=== PATIENT | female | born 1990 | race African-American/Black ===

== ENCOUNTER 2018-11-08 00:06 | Inpatient (IN) | payer OTHER ==
[2018-11-08 00:52] LABS: #Basophils 0.1 thou/uL (0.0-0.2); #Monocytes 0.8 thou/uL (0.11-0.59); #Neutrophils 7.3 thou/uL (1.40-6.50); %Basophils 0.6 % (0.0-1.0); %Eosinophils 0.4 % (0.0-10.0); %Lymphocytes 26.7 % (21.0-51.0); %Monocytes 6.8 % (0.0-10.0); %Neutrophils 65.6 % (42.0-75.0); Hemoglobin 12.5 g/dL (12.0-16.0); Mean Corpuscular HGB CONC 33.5 g/dL (32.0-36.0); Mean Corpuscular Hemoglobin 28.2 pg (27.0-31.0); Mean Corpuscular Volume 84.3 fL (78.0-98.0); Mean Platelet Volume 7.8 fL (7.4-10.4); Platelet Count 386 thou/uL (130-400); RBC Distribution Width 12.1 % (11.5-14.5); Red Blood Cell (RBC) Count 4.45 mill/uL (4.20-5.40); White Blood Cell (WBC) Count 11.2 thou/uL (4.8-10.8)
[2018-11-08 00:58] LABS: BHCG - Serum POSITIVE (NEGATIVE); Pregs Control Background? CLEAR/WHITE (CLR/WHITE); Pregs Control Bar Appear? YES (CONTROL BAR)
[2018-11-08 01:08] LABS: ALT (SGPT) 22 U/L (8-55); AST (SGOT) 20 U/L (5-34); Alkaline Phosphatase 62 U/L (40-150); Anion Gap 18 mmol/L (10-20); BUN (Urea Nitrogen) 16 mg/dL (7.0-18.7); Bilirubin, Total 1.1 mg/dL (0.2-1.2); CK (CPK) 342 U/L (29-168); Calc. Creatinine Clearance 0 mL/min (70-130); Calcium 9.6 mg/dL (7.8-10.44); Carbon Dioxide 18 mmol/L (22-29); Chloride 103 mmol/L (98-107); Estimated GFR-MDRD 85; Globulin 3.9 g/dL (2.4-3.5); Glucose 176 mg/dL (70-105); Lipase 57 U/L (8-78); Potassium 3.1 mmol/L (3.5-5.1); Protein, Total 8.9 g/dL (6.0-8.3); Sodium 136 mmol/L (136-145)
[2018-11-08] MEDS ORDERED: Ondansetron PF 4 MG/2 ML Vial ONE (01:09)
[2018-11-08] MEDS ORDERED: Potassium Chloride 20 MEQ TAB ONE (01:32)
[2018-11-08] MEDS ORDERED: Promethazine HCl 25 MG/ML VIAL ONE (02:12)
[2018-11-08] MEDS ORDERED: D5 1/2 NS w/20 mEq KCL 1,000 ML IV SCH (02:15)
[2018-11-08] MEDS ORDERED: Ondansetron ODT 4 MG TAB PO PRN (03:21)
[2018-11-08] MEDS ORDERED: Acetaminophen 325 MG TAB PO PRN (03:21)
--- NOTE | 2018-11-08 03:28 | PDOC.FPRHP ---
- History of Present Illness Chief Complaint: Vomiting History of Present Illness: 28 year old female with PMH type I DM that presents with uncontrolled nausea and vomiting for the past four days. Patient has been unable to keep anything down to include fluids. Patient also endorses some abdominal cramping since that time. Patient reportedly had her LMP last . Per patient's significant other, they had a positive test on Saturday, but no ultrasound had been done to confirm the . They also had a stillbirth in August. Patient has known history of DKA and states that her current state feels similar to when she has been in DKA in the past. Patient somewhat somnolent during exam and did not answer questions in detail. ED Course: Patient given 2L NS, 8 mg IV Zofran, 25 mg IV Phenergan, and was started on D51/ 2NS with 20 KCl in ED. Patient was also given KDur PO, but vomited, so was unable to keep it down. - Allergies/Adverse Reactions Allergies Allergy/AdvReac Type Severity Reaction Status Date / Time No Known Drug Allergies Allergy Verified 05/11/17 23:47 - Home Medications Medication Instructions Recorded Confirmed Type Insulin NPH/Reg Insulin Hm 12 units SQ BID 05/12/17 05/12/17 History [HumuLIN 70/30 Vial] - History PMHx: Type I DM with history of DKA PSHx: None FHx: DM and HTN Social: Denies alcohol, tobacco, or drug use - Review of Systems ROS unobtainable: other (solmnolent and not forthcoming with responses) General: denies: fever/chills Respiratory: denies: cough, shortness of breath Cardiovascular: denies: chest pain Gastrointestinal: reports: nausea, vomiting, abdominal pain. denies: diarrhea Genitourinary: denies: dysuria Skin: denies: rashes Neurological: denies: syncope, seizure - Vital signs BP: 116/72 HR: 124 RR: 17 Tmax: 98.4 F Pox: 98% on RA - Physical Exam -Constitutional: Somnolent HEENT: MMM -HEENT: Dry mucous membranes FMR H&P: Results - Labs Result Diagrams: 11/08/18 00:34 11/08/18 06:13 Lab results: WBC 11.2 thou/uL (4.8-10.8) H 11/08/18 00:34 Hgb 12.5 g/dL (12.0-16.0) 11/08/18 00:34 Hct 37.5 % (36.0-47.0) 11/08/18 00:34 MCV 84.3 fL (78.0-98.0) 11/08/18 00:34 Plt Count 386 thou/uL (130-400) 11/08/18 00:34 Neutrophils % 65.6 % (42.0-75.0) 11/08/18 00:34 Sodium 136 mmol/L (136-145) 11/08/18 00:34 Potassium 3.1 mmol/L (3.5-5.1) L 11/08/18 00:34 Chloride 103 mmol/L (98-107) 11/08/18 00:34 Carbon Dioxide 18 mmol/L (22-29) L 11/08/18 00:34 BUN 16 mg/dL (7.0-18.7) 11/08/18 00:34 Creatinine 0.95 mg/dL (0.6-1.1) 11/08/18 00:34 Glucose 176 mg/dL (70-105) H 11/08/18 00:34 Calcium 9.6 mg/dL (7.8-10.44) 11/08/18 00:34 Total Bilirubin 1.1 mg/dL (0.2-1.2) 11/08/18 00:34 AST 20 U/L (5-34) 11/08/18 00:34 ALT 22 U/L (8-55) 11/08/18 00:34 Alkaline Phosphatase 62 U/L (40-150) 11/08/18 00:34 Creatine Kinase 342 U/L (29-168) H 11/08/18 00:34 Serum Total Protein 8.9 g/dL (6.0-8.3) H 11/08/18 00:34 Albumin 5.0 g/dL (3.5-5.0) 11/08/18 00:34 Lipase 57 U/L (8-78) 11/08/18 00:34 FMR H&P: A/P - Problem List (1) Dehydration Current Visit: No Status: Acute Code(s): E86.0 - DEHYDRATION (2) Hyperglycemia Current Visit: No Status: Acute Code(s): R73.9 - HYPERGLYCEMIA, UNSPECIFIED (3) Hypokalemia Current Visit: No Status: Acute Code(s): E87.6 - HYPOKALEMIA (4) Sinus tachycardia Current Visit: No Status: Acute Code(s): R00.0 - TACHYCARDIA, UNSPECIFIED (5) Diabetes mellitus type I Current Visit: Yes Status: Chronic - Plan 28 year old female presents with 4 day history of N/V 1. N/V - Concern for DKA based on anion gap (15), Beta hydroxybutyrate (3), serum bicarb 18, solmnolent patient with history of DKA - ABG ordered but delayed >3 hours for unknown reason (RT was called at time order was placed) - Patient fluid hydrated; received 2L in ED and started on NS@200 mL/hr - Replace electrolytes - Patient tachycardic. Continue to monitor VS - UA pending for ketones 2. Diabetes mellitus type I - Concern for DKA for reasons mentioned above - BG threshold may be lower for DKA as patient is possibly (elevated beta HCG) - Patient on long acting and short acting insulin - She has been having N/V x4 days and has been unable to tolerate PO - Will consult Hospitalist team to assist with medical management 3. Severe dehydration - Patient s/p 2L NS boluses in ED - On NS @ 200 mL/hr - Tachycardic, continue to monitor VS 4. Possible appx 2-3 weeks - Patient initially admitted to our service for hyperemesis gravidarum; however , beta HCG only 230's which would make the patient 2-3 weeks. This timeframe along with the low quant level is not consistent with hyperemesis gravidarum. Additionally, patient's LMP last week which would suggest this may be possible miscarriage. Advise to continue following beta HCG 5. Sinus tachycardia - Likely 2/2 dehydration - Fluid hydration and continue to monitor 6. Hypokalemia - Replace electrolytes - Check Mg Dispo: Patient stable but solmnolent. Patient admitted to [facility]. Patient needs medical management. Hospitalist team was consulted for medical management. Disposition/LOS: Yamileth Slater DO PGY-2 FMR H&P: Upper Level - Plan Date/Time: 11/08/18 0325 I, [], have evaluated this patient and agree with findings/plan as outlined by nutrition intern resident. Pertinent changes/additions are listed here.
[2018-11-08] MEDS ORDERED: Sodium Chloride 0.9% 1,000 ML IV SCH ×2 (04:00)
[2018-11-08] MEDS ORDERED: Potassium Chloride 20 MEQ TAB PO SCH (04:00)
[2018-11-08] MEDS ORDERED: NS 0.9% w/ 40 MEQ KCL 1,000 ML IV SCH (04:00)
--- NOTE | 2018-11-08 05:37 | PRG ---
DATE OF SERVICE: 11/08/2018 SUBJECTIVE: The patient is a 28-year-old female, who was seen in the emergency room for persistent nausea and vomiting for last 4 days with a newly-diagnosed . The patient's past medical history is complicated by type 1 diabetes. The patient also reports her last menstrual period was only 8 days ago. We were consulted by the [facility] ER physician for management of what was concerned to be hyperemesis gravidarum and brought to the floor. Upon personal review of the labs and the patient, I have concerns that the patient is in DKA, and I have consulted the [facility] physician for assistance in management of this patient. The patient has hypokalemia, has an anion gap of 15, altered sensorium, creatine kinase of 342, and beta hydroxybutyrate of 2.97. ABG is pending. Most recent blood sugar is 176. The patient does have a history of DKA in the past. She reports that she has had persistent nausea and vomiting the last 4 days. During the evaluation, she has had a positive test, but the quantitative hCG came back at 284. I do not believe that her symptoms are related to this with the quant so low as hyperemesis gravidarum is usually associated with elevated hCG levels. There is also some thought that the patient may be miscarried recently with a reported period 8 days ago. At this time, the patient has received about 2.5 L of IV fluids and attempting to replace her potassium. No IV insulin has been given at this time given the level of her blood sugar and the low level of her potassium. We have attempted to contact the [facility] physician a second time to request him to come in person to see the patient and anticipate his cooperation in the very near future. OBJECTIVE: Vital signs; temperature 98.4, pulse of 124, blood pressure 116/72, respiratory rate of 17, saturating 98% on room air. In general, the patient appears to have some altered sensorium as the patient seems to be overly sedated with the boyfriend/ answering most of the questions. ASSESSMENT AND PLAN: Our goal is to replace volume depletion and her potassium and manage her blood sugars as necessary keeping her blood sugars between 100 and 150. Job ID: [id number] MTDD
[2018-11-08 05:53] LABS: Bilirubin Small (Negative); Blood, Urine Negative (Negative); Clarity CLEAR (Clear); Glucose, Urine (Dipstick) Negative (Negative); Leukocyte Negative (Negative); Nitrite Negative (Negative); Protein, Urine (Dipstick) 100 mg/dL (Neg-Trace); Specific Gravity, Urine 1.025 (1.002-1.036); pH, Urine 6.5 (5.0-9.0)
[2018-11-08 06:08] LABS: Actual Bicarbonate (HCO3a) 18.1 mEq/L (22-28); Base Excess (BEa) -6.3 mEq/L (-2.0 to +3.0); CO2 Tension 32.3 mmHg (35.0-45.0); Calcium, Ionized 1.13 mmol/L (1.12-1.30); Carboxyhemoglobin (COHb) 0.8 gm% (0.0-3.0); Hemoglobin (Hb) 11.3 g/dL (12.0-16.0); O2 Tension (PaO2) 88.1 mmHg (80.0-100.0); Potassium - ABG Lab 3.41 mmol/L (3.70-5.30); pH, Arterial 7.37 (7.35-7.45)
[2018-11-08 06:10] LABS: Puncture Site R RADIAL
[2018-11-08 06:11] LABS: ALV-art Gradient 21.255 (0-20)
[2018-11-08 06:50] LABS: Anion Gap 17 mmol/L (10-20); BUN (Urea Nitrogen) 13 mg/dL (7.0-18.7); Calc. Creatinine Clearance 0 mL/min (70-130); Calcium 8.8 mg/dL (7.8-10.44); Carbon Dioxide 16 mmol/L (22-29); Chloride 111 mmol/L (98-107); Estimated GFR-MDRD Greater than 90; Glucose 129 mg/dL (70-105); Potassium 3.5 mmol/L (3.5-5.1); Sodium 140 mmol/L (136-145)
[2018-11-08 06:57] LABS: Phosphorus 1.9 mg/dL (2.3-4.7)
[2018-11-08] MEDS ORDERED: Dextrose 5% in Water 1,000 ML IV PRN ×2 (07:14→07:55)
[2018-11-08] MEDS ORDERED: HumaLOG 300 UNITS/3 ML VIAL SC PRN ×2 (07:14)
[2018-11-08] MEDS ORDERED: Dextrose 50% Abboject 50 ML SYRINGE SLOW IVP PRN ×2 (07:14→07:55)
[2018-11-08] MEDS ORDERED: Potassium Phosphate 30 MMOL in Sodium Chloride 0.9% 500 ML IVPB SCH (07:30)
[2018-11-08] MEDS ORDERED: Lactated Ringer's 1,000 ML IV SCH (07:30)
[2018-11-08] MEDS ORDERED: Insulin Regular 300 UNITS/3 ML VIAL SC PRN (07:55)
--- NOTE | 2018-11-08 08:01 | PDOC.EVN ---
Event Note - Event Note Event Note: Addendum: Upon further investigation into patient's chart and records. Patient states that she is 6-8 weeks but we are unsure if patient is currently or had a miscarriage as patient had her period 8 days ago. At this time patient bloodwork shows positive HCG and HCG of 284. Will recommend Transvaginal Ultrasound to confirm if there is sac.
--- NOTE | 2018-11-08 08:15 | CON ---
DATE OF CONSULTATION: CHIEF COMPLAINT: We have been consulted for medical management. HISTORY OF PRESENT ILLNESS: This is a 28-year-old female with past medical history of type 1 diabetes mellitus, presenting with nausea and vomiting for the past week. Per the patient, she has been having nausea and vomiting for about 4-5 days, and the patient states that she has been throwing up about 5 to 7 times nonbilious, nonbloody prior to day of admission. The patient states that she has not been around any sick contacts and she does not have any symptoms of the flu. The patient denies having any fever, chills, dizziness, headaches, chest pain, palpitations, dysuria, hematuria, hematochezia, melena; however, the patient endorses having abdominal discomfort with some cramping and increased frequency with urination. The patient states that she is and states that she is about 6 to 8 weeks per what she was told. Per records, the patient had stillbirth in August, and the patient also states that she has history of being in DKA. Per the patient, she states that when she has DKA, she gets diaphoretic, vomiting, nausea, and fatigue. At this point , the patient denies having any of these symptoms, except for the fact the patient is vomiting. ED COURSE: In the ED, the patient was given normal saline, Zofran, Phenergan, D5 half-normal saline with 20 KCl. The patient was given K-Dur p.o., but the patient vomited. REVIEW OF SYSTEMS: Positive for nausea, vomiting, abdominal cramps. Otherwise as documented in the HPI, all other systems were reviewed and are negative. PAST MEDICAL HISTORY: Diabetes mellitus type 1. PAST SURGICAL HISTORY: in the past. PSYCHIATRIC HISTORY: No previous psych history noted. SOCIAL HISTORY: The patient denies any smoking history, any illicit drug use, and any alcohol use. FAMILY HISTORY: The patient endorses a family history of hypertension. ALLERGIES: NO KNOWN DRUG ALLERGIES NOTED. CURRENT MEDICATIONS: The patient is on NovoLog and Lantus. PHYSICAL EXAMINATION: VITAL SIGNS: Blood pressure is 104/70, pulse of 127, respiratory rate of 16, temperature of 98.4, O2 saturations of 98. GENERAL: The patient is lying on her right side. The patient has saliva in her mouth. The patient stated that she has not vomited since she has been on the medical floor. The patient is alert and oriented x3. HEENT: Normocephalic and atraumatic. Pupils are equally round and reactive to light. Extraocular movements are intact. No scleral icterus. No conjunctival pallor. Mouth, mucous membranes are dry. NECK: Trachea is midline. Full range of motion. No JVD. Supple. No tenderness. LUNGS: Clear to auscultation bilaterally. No wheezing, no rales, no rhonchi appreciated. CARDIAC: Positive S1 and S2. The patient is tachycardic. ABDOMEN: The patient has protuberant abdomen. Positive bowel sounds in all quadrants. EXTREMITIES: The patient does have 5/5 upper extremity strength and 5/5 lower extremity strength. No edema noted in the extremities. The patient has good pulses bilaterally of the upper and lower extremities. NEUROLOGIC: Cranial nerves 2 through 12 grossly intact. No neurologic deficits noted. SKIN: Poor skin turgor. Warm, dry and intact. PSYCHIATRIC: Normal affect. DIAGNOSTIC DATA: EKG shows sinus tachycardia. LABORATORY DATA: WBC 11.2, hemoglobin 12.5, hematocrit 37.5, MCV 84.3, RDW 12.1 , platelet count 386. ABGs; pH is 7.37, pCO2 is 32.3, pO2 is 88.1. Sodium 136, potassium 3.1, chloride 103, carbon dioxide of 18, anion gap of 18, BUN is 16, creatinine is 0.95, glucose is 176, calcium is 9.6, phosphorus is 1.9, magnesium is 2.3. AST is 20, ALT 22. Creatine kinase is 342. Troponins x1 is less than 0.010. Lipase is 57. Beta-hCG is 284. test is positive. Urinalysis shows some ketones in the urine. Beta-hydroxybutyrate is 2.97. ASSESSMENT AND PLAN: This is a 28-year-old female with past medical history of type 1 diabetes, presenting with nausea and vomiting for the past week, most likely due to hyperemesis gravidarum. At this point, the patient does have ketones in the blood; however, with severe vomiting due to hyperemesis gravidarum, the patient is going to have ketones that are elevated in the serum as well, and the patient is going to have dehydration. At this point, we will hydrate the patient, and we will keep our eyes on the patient closely since there is starvation ketosis that has developed due to vomiting. We will continue medical management. We will replete electrolyte abnormalities. 2. Diabetes mellitus type 1, currently sugar is controlled but there is underlying ketosis from starvation and vomiting. We will start the patient on insulin sliding scale. We will continue on IV hydration of lactated ringers and possibly start D5 1/2 NS. 3. Hyperchloremic acidosis. At this point, we are going to switch the patient's fluids from normal saline to lactated Ringer since the patient is having hyperchloremia. Due to hyperchloremia, the patient can also develop acidosis leading to Emesis and starvation state. 4. . Per the patient, 6 to 8 weeks. At this point, we cannot confirm how long the patient has been for, but per the patient, she has been between 6 and 8 weeks. Per records patient states that she also had some bleed 8 days ago. Unknown if patient is still . Will be beneficial to get Ultrasound of Abdomen to determine if patient is . We will follow up with [facility]'s recommendations. 5. Sinus tachycardia, likely due to dehydration. We will continue current management. 6. Deep vein thrombosis/gastrointestinal prophylaxis. Job ID: [id number] [facility]
[2018-11-08 08:31] VITALS: BMI 23.1
[2018-11-08] MEDS: D5 1/2 NS w/20 mEq KCL 1,000 ML IV SCH ×2 (08:47→15:35)
[2018-11-08] MEDS: Insulin Glargine 10 UNITS in Pre-Filled Syringe 1 EACH SC SCH ×2 (09:05→21:33)
[2018-11-08] MEDS: Insulin Regular 300 UNITS/3 ML VIAL SC PRN ×2 (12:25→15:41)
[2018-11-08 12:56] LABS: Lactic Acid 0.7 mmol/L (0.5-2.2)
[2018-11-08 12:57] LABS: Anion Gap 14 mmol/L (10-20); BUN (Urea Nitrogen) 9 mg/dL (7.0-18.7); Calc. Creatinine Clearance 124 mL/min (70-130); Calcium 8.1 mg/dL (7.8-10.44); Carbon Dioxide 14 mmol/L (22-29); Chloride 113 mmol/L (98-107); Estimated GFR-MDRD Greater than 90; Glucose 194 mg/dL (70-105); Potassium 4.1 mmol/L (3.5-5.1); Sodium 137 mmol/L (136-145)
[2018-11-08] MEDS: Lactated Ringer's 1,000 ML IV SCH ×2 (15:07→21:34)
[2018-11-08] MEDS ORDERED: Mag-Al 1200 mg/1200 mg/30 ML UDCUP PO SCH (15:15)
[2018-11-08] MEDS: Ondansetron PF 4 MG/2 ML Vial IVP PRN ×2 (17:07→21:33)
[2018-11-08] MEDS: Calcium Carbonate 500 MG ChewTAB PO PRN (21:33)
[2018-11-08] MEDS ORDERED: Melatonin 3 MG TAB PO SCH (22:45)
[2018-11-09] MEDS: Metoclopramide HCl 10 MG/2 ML VIAL IVP PRN ×2 (00:51→08:58)
[2018-11-09] MEDS: D5 1/2 NS w/20 mEq KCL 1,000 ML IV SCH ×5 (00:51→22:09)
[2018-11-09] MEDS: Lactated Ringer's 1,000 ML IV SCH (00:52)
[2018-11-09] MEDS: Ondansetron PF 4 MG/2 ML Vial IVP PRN ×2 (05:39→12:45)
[2018-11-09] MEDS: Insulin Regular 300 UNITS/3 ML VIAL SC PRN ×4 (06:06→17:55)
--- NOTE | 2018-11-09 06:35 | PDOC.EVN ---
Event Note - Event Note Event Note: Pt. sleeping, chart is reviewed. Emesis x 2 last shift, tx. with Zofrrufino Reglan with good response. VSS, AF BP= 147/84, P= 107, t= 99.3, O2 sat 100% on RA. Labs; K+= 4.1, glucoses= 171/180/162/188. BHCG 11/08= 284. Plan: Cont. sliding scale insulin for glucose control, antiemetics for nausea. Medical Hospitalist management appreciated. Would repeat BHCG 48-72 hrs from initial test.
[2018-11-09 07:44] LABS: Anion Gap 6 mmol/L (10-20); BUN (Urea Nitrogen) Less than 4 mg/dL (7.0-18.7); Calc. Creatinine Clearance 136 mL/min (70-130); Calcium 8.2 mg/dL (7.8-10.44); Carbon Dioxide 22 mmol/L (22-29); Chloride 110 mmol/L (98-107); Estimated GFR-MDRD Greater than 90; Glucose 186 mg/dL (70-105); Phosphorus 1.4 mg/dL (2.3-4.7); Potassium 3.4 mmol/L (3.5-5.1); Sodium 135 mmol/L (136-145)
[2018-11-09] MEDS ORDERED: Potassium Phosphate 15 MMOL in Sodium Chloride 0.9% 250 ML 250 ML IVPB SCH (08:00)
[2018-11-09] MEDS: Calcium Carbonate 500 MG ChewTAB PO PRN (08:56)
[2018-11-09] MEDS: Insulin Glargine 10 UNITS in Pre-Filled Syringe 1 EACH SC SCH ×2 (09:02→21:38)
[2018-11-09] MEDS: K-Phos Neutral 250 MG TAB PO SCH ×2 (09:51→19:40)
[2018-11-09] MEDS ORDERED: Promethazine HCl 25 MG/ML VIAL IM/IV PRN (10:33)
[2018-11-09] MEDS ORDERED: Metoclopramide HCl 10 MG/2 ML VIAL IVP SCH ×2 (10:45→12:00)
--- NOTE | 2018-11-09 13:42 | PDOC.EVN ---
Event Note - Event Note Event Note: I was called to the room to discuss options with the patient. She feels that she is too ill to go through with the and would like a termination. I discussed that we cannot perform terminations here at [facility]. I recommend repeating the hCG level in the morning to see if it is going up appropriately and to know how she should proceed. In the mean time, we will continue treating N/V and hydrating and [facility] will continue to manage her diabetes.
[2018-11-09] MEDS: Mag-Al 1200 mg/1200 mg/30 ML UDCUP PO PRN (13:46)
[2018-11-09] MEDS: Metoclopramide HCl 10 MG/2 ML VIAL IVP SCH ×2 (15:08→21:38)
[2018-11-10] MEDS: Metoclopramide HCl 10 MG/2 ML VIAL IVP SCH ×3 (03:16→14:53)
[2018-11-10] MEDS: Mag-Al 1200 mg/1200 mg/30 ML UDCUP PO PRN (03:27)
[2018-11-10] MEDS: Insulin Regular 300 UNITS/3 ML VIAL SC PRN ×2 (06:20→13:14)
[2018-11-10] MEDS: D5 1/2 NS w/20 mEq KCL 1,000 ML IV SCH (06:21)
[2018-11-10 07:22] LABS: Anion Gap 10 mmol/L (10-20); BUN (Urea Nitrogen) Less than 4 mg/dL (7.0-18.7); Calc. Creatinine Clearance 132 mL/min (70-130); Calcium 8.6 mg/dL (7.8-10.44); Carbon Dioxide 22 mmol/L (22-29); Chloride 108 mmol/L (98-107); Estimated GFR-MDRD Greater than 90; Glucose 164 mg/dL (70-105); Phosphorus 2.2 mg/dL (2.3-4.7); Potassium 3.5 mmol/L (3.5-5.1); Sodium 136 mmol/L (136-145)
[2018-11-10] MEDS ORDERED: Potassium Phosphate 12 MMOL in Sodium Chloride 0.9% 100 ML IVPB SCH (08:00)
--- NOTE | 2018-11-10 08:18 | PRG ---
DATE OF SERVICE: 11/10/2018 SUBJECTIVE: The patient had no vomiting overnight and feels that the current medication regimen is helping. She kept her eyes closed and only nodded this morning. She appears to be without complaints this morning. The patient denies any bleeding or other concerns. The patient has not tried eating anything overnight. OBJECTIVE: VITAL SIGNS: Blood pressure 110/68, pulse 119, respiratory rate 18 , and temperature 98.2. GENERAL: Awake and alert, in no acute distress. ABDOMEN: Soft. No guarding or rebound. Nontender to palpation. LABORATORY DATA: Glucose was 95 to 176 over the last 24 hours. HCG pending. CMP and phosphorus pending. ASSESSMENT AND PLAN: A 28-year-old admitted for persistent nausea and vomiting with newly diagnosed as well as uncontrolled blood sugars with question of diabetic ketoacidosis. She is being followed by [facility] for her diabetes and electrolyte abnormalities. We appreciate their input regarding this. Regarding the , if the hCG level rises appropriately, the patient's likely resource is to terminate the . She understands that cannot be done here. If the patient stays, she will likely need to be transferred to medical floor later today. Job ID: [id number] MTDD
[2018-11-10] MEDS: Insulin Glargine 10 UNITS in Pre-Filled Syringe 1 EACH SC SCH (08:46)
[2018-11-10 10:58] LABS: Base Excess-Venous -5.7 mmol/L (0 (+/- 2.5)); Bicarbonate (HCO3v) 17.7 mmol/L (22.0-29.0); CO2 Tension (PvCO2) 28.2 mmHg (41.0-51.0); Calcium, Ionized 1.12 mmol/L (1.12-1.32); Hemoglobin - Calc 12.9 g/dL (12.0-18.0); O2 Tension (PvO2) 36.8 mmHg (35.0-45.0); Potassium 2.9 mmol/L (3.4-4.7); T. Carbon Dioxide 18.5 mmol/L (1.0-85.0); pH (Venous) 7.405 (7.35-7.45); vO2 Saturation-calc 71.9 % (94-98)
[2018-11-10] MEDS ORDERED: 1/2 NS w/KCL 20 mEq 1,000 ML IV SCH (11:45)
[2018-11-10 12:07] VITALS: TEMP 98.5
[2018-11-10 12:37] VITALS: BP 99/68
--- NOTE | 2018-11-10 14:20 | DIS ---
DATE OF ADMISSION: 11/08/2018 DATE OF DISCHARGE: 11/10/2018 IN-HOSPITAL DIAGNOSES: 1. Early first-trimester . 2. Type 1 diabetic ketoacidosis with reflux. 3. Hypokalemia. 4. Hypophosphatemia. SUMMARY OF HOSPITAL COURSE: Ms. Powell is a 28-year-old, G2, P1, in early with normally rising beta-hCGs. She presented with symptoms consistent with her previous admissions and diagnosis of mild DKA, but was admitted by the OB Hospitalist Service with consultation of [facility] because of her . Her nausea and vomiting improved during her hospitalization, as well as her glycemic control in her laboratory. Vitals are stable with pulse between 100 and 110. The patient had an unremarkable exam on the p.m. of discharge and desired discharge home stating that she was able to tolerate p.o. well and felt as long as she continues eating, she would do well. She is going to follow up with Dr. Leigh at [facility], who is her regular diabetes management physician and initiate obstetric care at [facility]. No new discharge medicines were administered. Job ID: [id number]
--- NOTE | 2018-11-10 19:13 | PDOC.PN ---
- Subjective Encounter Start Date: 11/10/18 Encounter Start Time: 08:00 Patient seen and examined for med mngt. Nausea improving. No new complaints. No overnight events - Objective Resuscitation Status - Order Detail: 11/08/18 03:21 Resuscitation Status Routine Co-Sign Provider: Resuscitation Status: FULL: Full Resuscitation Discussed with: Patient and patient's spouse MAR Reviewed: Yes Vital Signs & Weight: Vital Signs (12 hours) Temp Pulse Resp BP BP Pulse Ox 11/10/18 12:00 98.5 F 111 H 18 114/76 99 11/10/18 10:00 98 11/10/18 09:05 98.4 F 113 H 16 99/68 98 11/10/18 08:20 97 11/10/18 07:55 98.6 F 117 H 20 98/63 97 Weight Weight 148 lb I&O: 11/09/18 11/10/18 11/11/18 06:59 06:59 06:59 Intake Total 4410 3362 Output Total 950 1550 Balance 3460 1812 Result Diagrams: 11/08/18 00:34 11/10/18 06:19 Additional Labs: Accuchecks 11/10/18 11/10/18 11/10/18 11:47 05:57 02:36 POC Glucose 173 H 165 H 151 H 11/09/18 21:56 POC Glucose 95 Laboratory Tests 11/08/18 11/10/18 01:25 06:19 POC Venous Potassium 2.9 L* Phosphorus 2.2 L Phys Exam - Physical Examination Constitutional: NAD Respiratory: no wheezing, no rhonchi Cardiovascular: RRR, no rub Gastrointestinal: soft, non-tender, positive bowel sounds Musculoskeletal: no edema Neurological: moves all 4 limbs Dx/Plan (1) DKA, type 1 Code(s): E10.10 - TYPE 1 DIABETES MELLITUS WITH KETOACIDOSIS WITHOUT COMA Status: Acute Qualifiers: Diabetes mellitus complication detail: without coma Qualified Code(s): E10.10 - Type 1 diabetes mellitus with ketoacidosis without coma (2) Hypophosphatemia Code(s): E83.39 - OTHER DISORDERS OF PHOSPHORUS METABOLISM Status: Acute (3) Hypokalemia Code(s): E87.6 - HYPOKALEMIA Status: Acute (4) Diabetes mellitus type I Status: Chronic - Plan DVT proph w/SCDs * Replace Phosphorus * Change IVF to 1/2 NS with 20 meq KCL * AM labs * Advance diet as tolerated * Patient was counselled on DM type 1. * Will follow Review of Systems - Review of Systems Respiratory: negative: Cough, Dry, Shortness of Breath, Hemoptysis, SOB with Excertion, Pleuritic Pain, Sputum, Wheezing Cardiovascular: negative: chest pain, palpitations, orthopnea, paroxysmal nocturnal dyspnea, edema, light headedness, other - Medications/Allergies Allergies/Adverse Reactions: Allergies Allergy/AdvReac Type Severity Reaction Status Date / Time No Known Drug Allergies Allergy Verified 05/11/17 23:47
--- NOTE | 2018-11-11 14:15 | EKG ---
Test Reason : DK TACHY Blood Pressure : / mmHG Vent. Rate : 141 BPM Atrial Rate : 141 BPM P-R Int : 112 ms QRS Dur : 076 ms QT Int : 290 ms P-R-T Axes : 079 068 -29 degrees QTc Int : 444 ms Sinus tachycardia Nonspecific ST and T wave abnormality Abnormal ECG Confirmed by ALANNA LARA, TIN ([id number]), editor index LAYTON ORTIZ ([id number]) on 11/11/2018 2:15:39 PM Referred By: Confirmed By:TIN MONDRAGON MD
== END 2018-11-10 15:29 | disposition home or self-care (01) | DRG 831 ==
LOC: ERS 00:06 → SDC/OP 02:42 → 3SW 02:52 → T4-B 11-10 09:05
PROVIDERS: ADMIT Obstetrics & Gynecology; ATTEND Obstetrics & Gynecology
DX: O24.011 Pre-existing type 1 diabetes mellitus, in pregnancy, first trimester (principal); E10.10 Type 1 diabetes mellitus with ketoacidosis without coma; E87.6 Hypokalemia; E83.39 Other disorders of phosphorus metabolism; Z79.4 Long term (current) use of insulin; E86.0 Dehydration; E87.8 Other disorders of electrolyte and fluid balance, not elsewhere classified; O99.281 Endocrine, nutritional and metabolic diseases complicating pregnancy, first trimester
CPT/HCPCS: 36415; 36416; 80048; 80053; 81003; 82010; 82330; 82550; 82803; 82805; 83605; 83690; 83735; 84100; 84484; 84702; 84703; 85014; 85025; 93005; 94760; 96361; 96365; 96375; J1815; J2405; J2550; J2765; J3480; J7050; Q0162

== ENCOUNTER 2018-11-15 13:49 | Emergency (ER) | payer OTHER ==
[2018-11-15 14:29] LABS: Bilirubin Small (Negative); Blood, Urine Large (Negative); Clarity CLOUDY (Clear); Glucose, Urine (Dipstick) Negative (Negative); Leukocyte Moderate (Negative); Nitrite Negative (Negative); Protein, Urine (Dipstick) 100 mg/dL (Neg-Trace); Specific Gravity, Urine 1.034 (1.002-1.036)
[2018-11-15 14:35] LABS: Bacteria/HPF 1+ HPF (None Seen); Pathc Cast-AUWi Flag 1.59 (0-2.49)
[2018-11-15 14:42] LABS: Crystals/HPF 1+ CA OXALATE HPF (Negative); Hyaline Casts/LPF 0-3 HYALINE CAST LPF (0-3 Hyaline); Renal Epithelial None Seen HPF (0-3); Transitional Epithelial NONE SEEN HPF (0-3)
[2018-11-15 14:47] LABS: #Lymphocytes 2.1 thou/uL (1.20-3.40); #Monocytes 0.5 thou/uL (0.11-0.59); #Neutrophils 4.4 thou/uL (1.40-6.50); %Basophils 0.3 % (0.0-1.0); %Eosinophils 0.4 % (0.0-10.0); %Monocytes 6.7 % (0.0-10.0); %Neutrophils 62.6 % (42.0-75.0); Hemoglobin 12.1 g/dL (12.0-16.0); Mean Corpuscular HGB CONC 34.3 g/dL (32.0-36.0); Mean Corpuscular Hemoglobin 29.4 pg (27.0-31.0); Mean Corpuscular Volume 85.6 fL (78.0-98.0); Mean Platelet Volume 7.9 fL (7.4-10.4); Platelet Count 301 thou/uL (130-400); RBC Distribution Width 12.6 % (11.5-14.5); Red Blood Cell (RBC) Count 4.13 mill/uL (4.20-5.40); White Blood Cell (WBC) Count 7.1 thou/uL (4.8-10.8)
[2018-11-15 14:48] LABS: BHCG - Serum POSITIVE (NEGATIVE); Pregs Control Background? CLEAR/WHITE (CLR/WHITE); Pregs Control Bar Appear? YES (CONTROL BAR)
== END 2018-11-15 15:30 | disposition left against medical advice (07) ==
LOC: ERS 13:49
DX: Z53.21 Procedure and treatment not carried out due to patient leaving prior to being seen by health care provider (principal)
CPT/HCPCS: 36415; 81003; 81015; 84702; 84703; 85025; 86900; 86901

== ENCOUNTER 2019-04-22 23:04 | Emergency (ER) | payer OTHER ==
[2019-04-22 23:34] LABS: Bilirubin Negative (Negative); Blood, Urine Negative (Negative); Clarity CLEAR (Clear); Glucose, Urine (Dipstick) >=1000 mg/dL (Negative); Leukocyte Negative (Negative); Nitrite Negative (Negative); Protein, Urine (Dipstick) Negative (Neg-Trace); Specific Gravity, Urine 1.041 (1.002-1.036); Urobilinogen 0.2 mg/dL (0.2-1.0)
[2019-04-22 23:35] LABS: Pregnancy Test - Urine (BHCG) Negative (Negative); Pregu Control Bar Appear? YES (CONTROL BAR); Specific Gravity 1.041 (1.002-1.036)
[2019-04-22 23:36] LABS: Pregu Control Background? CLEAR/WHITE (CLR/WHITE)
[2019-04-23] MEDS ORDERED: Ketorolac Tromethamine 30 MG/ML VIAL ONE (00:08)
[2019-04-23] MEDS ORDERED: Ondansetron PF 4 MG/2 ML Vial ONE (00:16)
[2019-04-23 00:21] LABS: #Eosinphils 0.1 thou/uL (0.0-0.7); #Lymphocytes 3.4 thou/uL (1.20-3.40); #Monocytes 0.5 thou/uL (0.11-0.59); #Neutrophils 4.3 thou/uL (1.40-6.50); %Basophils 0.3 % (0.0-1.0); %Lymphocytes 41.2 % (21.0-51.0); %Monocytes 5.7 % (0.0-10.0); %Neutrophils 51.8 % (42.0-75.0); Mean Corpuscular HGB CONC 32.8 g/dL (32.0-36.0); Mean Corpuscular Hemoglobin 26.9 pg (27.0-31.0); Mean Corpuscular Volume 81.9 fL (78.0-98.0); Mean Platelet Volume 9.2 fL (7.4-10.4); Platelet Count 199 thou/uL (130-400); RBC Distribution Width 13.2 % (11.5-14.5); White Blood Cell (WBC) Count 8.2 thou/uL (4.8-10.8)
[2019-04-23 00:44] LABS: ALT (SGPT) 15 U/L (8-55); AST (SGOT) 11 U/L (5-34); Albumin 4.3 g/dL (3.5-5.0); Alkaline Phosphatase 72 U/L (40-150); Anion Gap 12 mmol/L (10-20); BUN (Urea Nitrogen) 11 mg/dL (7.0-18.7); Bilirubin, Total 0.2 mg/dL (0.2-1.2); Calc. Creatinine Clearance 0 mL/min (70-130); Calcium 9.7 mg/dL (7.8-10.44); Carbon Dioxide 23 mmol/L (22-29); Chloride 104 mmol/L (98-107); Estimated GFR-MDRD 69; Globulin 3.2 g/dL (2.4-3.5); Glucose 456 mg/dL (70-105); Protein, Total 7.5 g/dL (6.0-8.3); Sodium 135 mmol/L (136-145)
[2019-04-24 20:02] LABS: Chlamydia by PCR Not Detected (NotDetected); GC by PCR Not Detected (NotDetected)
== END 2019-04-23 01:32 | disposition home or self-care (01) ==
LOC: ERS 23:04
DX: R10.2 Pelvic and perineal pain (principal); R11.0 Nausea; E10.9 Type 1 diabetes mellitus without complications
CPT/HCPCS: 80053; 81003; 81025; 85025; 87086; 87480; 87491; 87510; 87591; 87660; 96361; 96374; 96375; C1776; J1885; J2405

== ENCOUNTER 2019-06-01 20:43 | Inpatient (IN) | payer OTHER ==
[~2019-06-01 20:43] MED LIST: ISOVUE-370 76%-LOCM 1 ML ONE
[2019-06-01] MEDS ORDERED: Ondansetron PF 4 MG/2 ML Vial ONE (21:35)
[2019-06-01 21:53] LABS: #Lymphocytes 0.9 thou/uL (1.20-3.40); #Monocytes 0.3 thou/uL (0.11-0.59); #Neutrophils 11.2 thou/uL (1.40-6.50); %Basophils 0.1 % (0.0-1.0); %Eosinophils 0.3 % (0.0-10.0); %Monocytes 2.4 % (0.0-10.0); %Neutrophils 90.1 % (42.0-75.0); Hemoglobin 13.4 g/dL (12.0-16.0); Mean Corpuscular HGB CONC 32.9 g/dL (32.0-36.0); Mean Corpuscular Hemoglobin 27.2 pg (27.0-31.0); Mean Corpuscular Volume 82.8 fL (78.0-98.0); Platelet Count 234 thou/uL (130-400); RBC Distribution Width 14.2 % (11.5-14.5); Red Blood Cell (RBC) Count 4.92 mill/uL (4.20-5.40); White Blood Cell (WBC) Count 12.5 thou/uL (4.8-10.8)
[2019-06-01 22:02] LABS: Bilirubin Small (Negative); Blood, Urine Large (Negative); Glucose, Urine (Dipstick) 500 mg/dL (Negative); Leukocyte Negative (Negative); Nitrite Negative (Negative); Protein, Urine (Dipstick) 100 mg/dL (Neg-Trace); Urobilinogen 0.2 mg/dL (Less than 2)
[2019-06-01 22:04] LABS: Clarity Hazy (Clear); Pregnancy Test - Urine (BHCG) Negative (Negative); Pregu Control Background? CLEAR/WHITE (CLR/WHITE); Pregu Control Bar Appear? YES (CONTROL BAR); Specific Gravity 1.025 (1.002-1.036)
[2019-06-01 22:05] LABS: Bacteria/HPF 1+ HPF (None Seen); RBC/HPF Greater than 50 HPF (0-3); Squamous Epithelial 0-3 HPF (0-3); WBC/HPF 0-3 HPF (0-3)
[2019-06-01 22:10] LABS: ALT (SGPT) 36 U/L (8-55); AST (SGOT) 40 U/L (5-34); Albumin 4.7 g/dL (3.5-5.0); Alkaline Phosphatase 73 U/L (40-150); Anion Gap 16 mmol/L (10-20); BUN (Urea Nitrogen) 20 mg/dL (7.0-18.7); Bilirubin, Total 0.8 mg/dL (0.2-1.2); Calc. Creatinine Clearance 0 mL/min (70-130); Calcium 9.7 mg/dL (7.8-10.44); Carbon Dioxide 22 mmol/L (22-29); Chloride 101 mmol/L (98-107); Estimated GFR-MDRD 74; Globulin 3.7 g/dL (2.4-3.5); Glucose 339 mg/dL (70-105); Lipase 29 U/L (8-78); Potassium 3.8 mmol/L (3.5-5.1); Protein, Total 8.4 g/dL (6.0-8.3); Sodium 135 mmol/L (136-145)
[2019-06-01] MEDS ORDERED: Metoclopramide HCl 10 MG/2 ML VIAL ONE ×2 (22:37→23:10)
--- NOTE | 2019-06-02 00:04 | CT ---
CT ABDOMEN AND PELVIS WITH IV CONTRAST: HISTORY: Lower abdominal pain. Vaginal bleeding. FINDINGS: The lung bases are clear. The liver demonstrates decreased attenuation, compared to the spleen, cons istent with fatty infiltration. No calcified gallstones are seen. The spleen, pancreas, adrenal gla nds, and kidneys are normal. No free air is seen. A normal appearing appendix is present. Uterus a nd ovaries are present. A tiny amount of free fluid is seen in the pelvis. There is a circumaortic left renal vein. IMPRESSION: 1. Fatty liver. 2. No evidence of appendicitis. 3. Tiny amount of free fluid in the pelvis. POS: [facility]
[2019-06-02] MEDS ORDERED: HumaLOG 300 UNITS/3 ML VIAL SC PRN (09:34)
[2019-06-02] MEDS ORDERED: Dextrose 50% Abboject 50 ML SYRINGE SLOW IVP PRN (09:34)
[2019-06-02] MEDS ORDERED: Dextrose 5% in Water 1,000 ML IV PRN (09:34)
[2019-06-02] MEDS: Sodium Chloride 0.9% 1,000 ML IV SCH ×3 (09:45→23:45)
[2019-06-02] MEDS ORDERED: HumaLOG 300 UNITS/3 ML VIAL ONE (10:59)
[2019-06-02] MEDS: HumaLOG 300 UNITS/3 ML VIAL SC PRN ×3 (11:07→18:19)
--- NOTE | 2019-06-02 12:41 | HP ---
CHIEF COMPLAINT: Nausea, vomiting, and abdominal cramps. HISTORY OF PRESENT ILLNESS: The patient is a 29-year-old female with 1-day history of nausea, vomiting, and abdominal cramping. She vomited 5 or 6 times yesterday. She denied any fever or chills. She denied dysuria, cough, or sore throat. She started her periods yesterday. She is type 1 diabetic, on insulin. Her PCP is Thomas Bonner from [facility] and surrogate decision maker is Cristiano Sheppard, her boyfriend. PAST MEDICAL HISTORY: Positive for type 1 diabetes mellitus and miscarriage in November 2018 and D and C. PAST SURGICAL HISTORY: section x1 and D and C in November 2018. SOCIAL HISTORY: She denies any alcohol use. She does not use any illicit drugs. She does not smoke cigarettes. FAMILY HISTORY: Positive for diabetes and hypertension. REVIEW OF SYSTEMS: All 14 systems were reviewed and all symptoms were negative except for those mentioned in HPI. PHYSICAL EXAMINATION: GENERAL: She is not in any distress. She is not in any pain at the time of my visit. VITAL SIGNS: Blood pressure is 93/56, pulse is 123, she is afebrile, and respiratory rate is 16. HEENT: Head is atraumatic and normocephalic. Eyes are PERRLA. Sclerae are nonicteric. Conjunctivae are reddish. Oral mucosa somewhat dry. NECK: Supple. LUNGS: Clear. HEART: S1 and S2. Tachycardic. No S3. No S4. ABDOMEN: Soft and nontender. Bowel sounds are present. No organomegaly. EXTREMITIES: No clubbing, cyanosis, or edema. NEUROLOGICAL: She is alert and oriented x4. There is no any motor or sensory deficits present. Cranial nerves are intact. LABORATORY DATA: Labs showed white count of 12.5, hemoglobin 13.4, hematocrit 40.8, MCV 82.8, platelet count 234,000, and neutrophils 90. Sodium of 135, potassium 3.8, chloride 101, BUN of 20, creatinine 1.02, glucose 339, AST 40, ALT 36, and alkaline phosphatase 73. Serum protein is 8.4, globulin 3.7, albumin 4.7, lipase 29. Urinalysis showed 100 of protein, 500 of glucose, 15 of ketones, large amount of blood, small amount of bilirubin, rbc's greater than 50, leukocyte esterase negative, nitrite negative, 1+ bacteria, and hyaline casts 4 to 6. Urine test negative. IMPRESSION: 1. Nausea, vomiting, and abdominal cramps. Negative urine for urinary tract infection. She is diabetic. Most likely this is related to her diabetes control. She has not been taking Accu-Cheks recently. 2. Dehydration secondary to nausea, vomiting, and abdominal cramps. 3. Type [address] of the abdomen and pelvis personally reviewed by me showed fatty liver. No evidence of any acute problem. PLAN: Plan is admission for observation. Condition is fair. Activity is bedrest and bathroom privileges. We are going to give her a bolus of normal saline 500 now, then she will be on 150 mL/h. We will keep her on clear liquids. Do Accu-Cheks a.c. and at bedtime and use mild sliding-scale fluids. We will continue her 10 units of long-acting insulin Lantus. We will do DVT prophylaxis with Lovenox and we will use p.r.n. antiemetics and she should be able to go home in the next probably 24 to 48 hours. Job ID: [id number]
[2019-06-02] MEDS ORDERED: Ondansetron PF 4 MG/2 ML Vial ONE (13:31)
[2019-06-02] MEDS: Ondansetron PF 4 MG/2 ML Vial IVP PRN (13:38)
[2019-06-02] MEDS: Promethazine HCl 12.5 MG in Sodium Chloride 0.9% 50 ML IVPB PRN (18:21)
[2019-06-02] MEDS: Insulin Glargine 10 UNITS in Pre-Filled Syringe 1 EACH SC SCH (22:24)
[2019-06-03 05:48] LABS: #Lymphocytes 1.2 thou/uL (1.20-3.40); #Monocytes 0.4 thou/uL (0.11-0.59); #Neutrophils 7.7 thou/uL (1.40-6.50); %Basophils 0.2 % (0.0-1.0); %Eosinophils 0.3 % (0.0-10.0); %Lymphocytes 12.6 % (21.0-51.0); %Neutrophils 82.9 % (42.0-75.0); Hemoglobin 10.9 g/dL (12.0-16.0); Mean Corpuscular HGB CONC 31.8 g/dL (32.0-36.0); Mean Corpuscular Hemoglobin 26.8 pg (27.0-31.0); Mean Corpuscular Volume 84.4 fL (78.0-98.0); Mean Platelet Volume 8.6 fL (7.4-10.4); Platelet Count 191 thou/uL (130-400); RBC Distribution Width 14.1 % (11.5-14.5); Red Blood Cell (RBC) Count 4.05 mill/uL (4.20-5.40); White Blood Cell (WBC) Count 9.2 thou/uL (4.8-10.8)
[2019-06-03 06:04] LABS: Anion Gap 16 mmol/L (10-20); BUN (Urea Nitrogen) 8 mg/dL (7.0-18.7); Calc. Creatinine Clearance 129 mL/min (70-130); Calcium 8.3 mg/dL (7.8-10.44); Carbon Dioxide 14 mmol/L (22-29); Chloride 112 mmol/L (98-107); Estimated GFR-MDRD Greater than 90; Glucose 249 mg/dL (70-105); Potassium 3.8 mmol/L (3.5-5.1); Sodium 138 mmol/L (136-145)
[2019-06-03] MEDS: HumaLOG 300 UNITS/3 ML VIAL SC PRN ×3 (06:17→17:01)
[2019-06-03] MEDS: Sodium Chloride 0.9% 1,000 ML IV SCH ×3 (06:17→17:26)
[2019-06-03] MEDS: Enoxaparin Sodium 40 MG/0.4 ML SYRINGE SC SCH (08:35)
[2019-06-03] MEDS: Ondansetron PF 4 MG/2 ML Vial IVP PRN (11:22)
[2019-06-03] MEDS: HumaLOG 300 UNITS/3 ML VIAL SC SCH ×2 (11:22→17:00)
--- NOTE | 2019-06-03 12:16 | PRG ---
DATE OF SERVICE: 06/03/2019 SUBJECTIVE: The patient is seen and examined at bedside. She vomited last night. She does not complain about any nausea this morning. There is no any abdominal pain. She is on clear liquids now. OBJECTIVE: VITAL SIGNS: Blood pressure is 123/75, pulse is 112, temperature is 99.2, respirations 14, O2 saturation is 99% on room air. HEENT: Head is atraumatic and normocephalic. Eyes are PERRLA. Sclerae are nonicteric. Conjunctivae are pinkish. Oral mucosa is still somewhat dry. NECK: Supple. LUNGS: Clear. HEART: S1, S2. Tachycardic. No S3. No S4. ABDOMEN: Soft, nontender. Bowel sounds are present. EXTREMITIES: No clubbing, cyanosis, or edema. NEUROLOGICAL: She is alert and oriented x4. There are no any motor deficits. LABORATORY DATA: Labs showed normal white count at 9.2, hemoglobin 10.9, hematocrit 34.2, platelet count is 191,000. Sodium of 138, potassium 3.8, chloride 112, BUN of 8, CO2 of 14, and creatinine 0.76. Her glycemia is ranging from 86 to 292. Calcium 8.3. Microbiology, none. IMPRESSION: 1. Nausea and vomiting with elevated glycemia, most likely related to her diabetes. We will put her on her regular schedule, which is short-acting insulin before each meal 8 units and 10 units of long-acting Lantus at night. 2. Metabolic acidosis. The gap is within normal limits. I will check her beta-hydroxybutyrate. She might be going to a diabetic ketoacidosis. 3. Type 2 diabetes mellitus. As mentioned above, I am putting her back on her regular schedule despite that she is on clear liquids, and we will increase her diet to full liquid and see whether she can tolerate that. Also, we will decrease the IV fluids to 125, and we will continue antiemetics p.r.n. as needed. Job ID: [id number]
[2019-06-03] MEDS: Promethazine HCl 12.5 MG in Sodium Chloride 0.9% 50 ML IVPB PRN (20:44)
[2019-06-03] MEDS: Insulin Glargine 10 UNITS in Pre-Filled Syringe 1 EACH SC SCH (20:46)
[2019-06-03] MEDS: Mag-Al 1200 mg/1200 mg/30 ML UDCUP PO PRN (20:49)
[2019-06-04] MEDS: Sodium Chloride 0.9% 1,000 ML IV SCH ×4 (02:00→23:07)
[2019-06-04 08:31] LABS: Anion Gap 12 mmol/L (10-20); BUN (Urea Nitrogen) 5 mg/dL (7.0-18.7); Calc. Creatinine Clearance 130 mL/min (70-130); Calcium 8.2 mg/dL (7.8-10.44); Carbon Dioxide 17 mmol/L (22-29); Chloride 109 mmol/L (98-107); Estimated GFR-MDRD Greater than 90; Glucose 189 mg/dL (70-105); Potassium 3.1 mmol/L (3.5-5.1); Sodium 135 mmol/L (136-145)
[2019-06-04] MEDS: HumaLOG 300 UNITS/3 ML VIAL SC SCH ×3 (08:55→16:40)
[2019-06-04] MEDS: Enoxaparin Sodium 40 MG/0.4 ML SYRINGE SC SCH (08:55)
[2019-06-04] MEDS: HumaLOG 300 UNITS/3 ML VIAL SC PRN (08:55)
[2019-06-04] MEDS: Potassium Chloride 20 MEQ TAB PO SCH ×2 (11:15→15:56)
--- NOTE | 2019-06-04 14:32 | PRG ---
DATE OF SERVICE: 06/04/2019 SUBJECTIVE: The patient is seen examined at bedside. She had some vomiting yesterday. She does not have any abdominal pain. OBJECTIVE: VITAL SIGNS: Blood pressure is 108/58, pulse is 110, respirations 16, O2 saturation is 99%, temperature is 97.9. She is on room air. HEENT: Head is atraumatic and normocephalic. Eyes are PERRLA. Sclerae are nonicteric. Oral mucosa is still somewhat dry. NECK: Supple. LUNGS: Clear. HEART: S1, S2. Tachycardic. No S3. No S4. ABDOMEN: Soft, nontender. Bowel sounds are present. No organomegaly. EXTREMITIES: No clubbing, cyanosis, or edema. NEUROLOGICAL EXAMINATION: She is alert and oriented x4. There is no any motor or sensory deficits. Cranial nerves are intact. LABORATORY DATA: Sodium of 135, potassium 3.1, chloride 109, CO2 17, BUN 5, creatinine 0.75. Glycemia is ranging from 130 to 200. Beta-hydroxybutyrate 2.89, magnesium 2.1, calcium 8.2. IMPRESSION: 1. Mild diabetic ketoacidosis. We are going to change her status to inpatient. We are going to increase her insulin dosing. Yesterday, we changed her short-acting insulin to 8 units before each meal plus moderate sliding scale. Her acidosis improved. Her CO2 went up to 17 from 14 yesterday. We will continue the same treatment today. 2. Nausea and vomiting related to #1 most likely. We will continue p.r.n. antiemetics, Phenergan, and Zofran. Continue IV fluids. 3. Type 1 diabetes mellitus. As mentioned above, we are increasing the dose along with 10 units of long-acting Lantus daily. She will have 8 units of short-acting at a.c. plus moderate sliding scale. This should improve her acidosis and improve her home nausea and vomiting. We will low her IV rate to 100. Job ID: [id number]
[2019-06-04] MEDS: Mag-Al 1200 mg/1200 mg/30 ML UDCUP PO PRN (16:39)
[2019-06-04] MEDS: Insulin Glargine 10 UNITS in Pre-Filled Syringe 1 EACH SC SCH (23:05)
[2019-06-05] MEDS: Mag-Al 1200 mg/1200 mg/30 ML UDCUP PO PRN (05:19)
[2019-06-05] MEDS: Promethazine HCl 12.5 MG in Sodium Chloride 0.9% 50 ML IVPB PRN (05:20)
[2019-06-05 05:48] LABS: Hemoglobin A1c 12.7 % (4.0-6.0)
[2019-06-05 06:03] LABS: Anion Gap 13 mmol/L (10-20); BUN (Urea Nitrogen) 6 mg/dL (7.0-18.7); Calc. Creatinine Clearance 136 mL/min (70-130); Calcium 8.4 mg/dL (7.8-10.44); Carbon Dioxide 16 mmol/L (22-29); Chloride 112 mmol/L (98-107); Estimated GFR-MDRD Greater than 90; Glucose 136 mg/dL (70-105); Potassium 3.6 mmol/L (3.5-5.1); Sodium 137 mmol/L (136-145)
[2019-06-05] MEDS: Enoxaparin Sodium 40 MG/0.4 ML SYRINGE SC SCH (08:38)
[2019-06-05] MEDS: HumaLOG 300 UNITS/3 ML VIAL SC SCH ×3 (08:40→18:10)
[2019-06-05] MEDS: Dextrose 5% in Water 1,000 ML IV SCH ×2 (12:39→20:18)
[2019-06-05] MEDS ORDERED: Potassium Chloride 20 MEQ TAB PO SCH (13:30)
--- NOTE | 2019-06-05 13:58 | PRG ---
DATE OF SERVICE: 06/05/2019 SUBJECTIVE: The patient is seen and examined at bedside. She vomited this morning. She does not have any abdominal pain. No diarrhea. OBJECTIVE: VITAL SIGNS: Blood pressure is 128/89, pulse is 124, temperature is 98.7, respiratory rate is 16, O2 saturation is 100% on room air. HEENT: Head is atraumatic and normocephalic. Eyes, PERRLA. Sclerae nonicteric. Oral mucosa is somewhat dry. NECK: Supple. LUNGS: Clear. HEART: S1 and S2. Tachycardic. No S3. No S4. ABDOMEN: Soft, nontender, nondistended. EXTREMITIES: No clubbing, cyanosis, or edema. NEUROLOGICAL: She is alert and oriented x4. There are no any motor or sensory deficits. LABORATORY DATA: Sodium of 137, potassium 3.6, chloride 112, CO2 of 16, BUN 6, creatinine 0.72, glycemia is ranging from 121 to 168. Hemoglobin A1c came back at 12.7, calcium is 8.4. IMPRESSION: 1. Diabetic ketoacidosis, mild. We will continue her current regimen with 8 units of short-acting insulin plus 10 units of long-acting and we will switch her IV fluids to D5 water. This might help with the acidosis. 2. Nausea and vomiting, still a problem. This most likely related to diabetic ketoacidosis. 3. Type 1 diabetes mellitus. Again, home regimen as mentioned above. Her hemoglobin A1c came back at 12.7, which means that her glycemia was way above 300 on a daily basis. We are going to replace her electrolytes as needed, and we will give her 40 mEq of KCl today since her potassium 3.6. Job ID: [id number]
[2019-06-05] MEDS: Insulin Glargine 10 UNITS in Pre-Filled Syringe 1 EACH SC SCH (20:19)
[2019-06-06] MEDS: Dextrose 5% in Water 1,000 ML IV SCH ×2 (04:25→12:30)
[2019-06-06 08:21] LABS: #Lymphocytes 2.6 thou/uL (1.20-3.40); #Monocytes 0.8 thou/uL (0.11-0.59); #Neutrophils 6.8 thou/uL (1.40-6.50); %Basophils 0.4 % (0.0-1.0); %Eosinophils 0.3 % (0.0-10.0); %Lymphocytes 25.5 % (21.0-51.0); %Neutrophils 65.8 % (42.0-75.0); Hemoglobin 12.1 g/dL (12.0-16.0); Mean Corpuscular HGB CONC 33.3 g/dL (32.0-36.0); Mean Corpuscular Hemoglobin 26.9 pg (27.0-31.0); Mean Corpuscular Volume 80.8 fL (78.0-98.0); Mean Platelet Volume 8.1 fL (7.4-10.4); Platelet Count 239 thou/uL (130-400); RBC Distribution Width 13.6 % (11.5-14.5); Red Blood Cell (RBC) Count 4.49 mill/uL (4.20-5.40); White Blood Cell (WBC) Count 10.3 thou/uL (4.8-10.8)
[2019-06-06 08:42] LABS: Anion Gap 13 mmol/L (10-20); BUN (Urea Nitrogen) 5 mg/dL (7.0-18.7); Calc. Creatinine Clearance 153 mL/min (70-130); Calcium 8.4 mg/dL (7.8-10.44); Carbon Dioxide 18 mmol/L (22-29); Chloride 102 mmol/L (98-107); Estimated GFR-MDRD Greater than 90; Glucose 266 mg/dL (70-105); Sodium 130 mmol/L (136-145)
[2019-06-06 08:49] LABS: Potassium 2.9 mmol/L (3.5-5.1)
[2019-06-06] MEDS: HumaLOG 300 UNITS/3 ML VIAL SC SCH ×3 (09:26→17:39)
[2019-06-06] MEDS: HumaLOG 300 UNITS/3 ML VIAL SC PRN ×2 (09:26→12:31)
[2019-06-06] MEDS: Potassium Chloride 20 MEQ TAB PO SCH ×2 (09:26→14:26)
[2019-06-06] MEDS: Enoxaparin Sodium 40 MG/0.4 ML SYRINGE SC SCH (09:27)
[2019-06-06 11:01] LABS: Phosphorus 1.2 mg/dL (2.3-4.7)
[2019-06-06] MEDS ORDERED: Potassium Phosphate 15 MMOL in Sodium Chloride 0.9% 250 ML 250 ML IVPB SCH (13:45)
--- NOTE | 2019-06-06 14:58 | PRG ---
DATE OF SERVICE: 06/06/2019 SUBJECTIVE: The patient is seen and examined at the bedside. She stays in bed most of the time. She does not get any abdominal pain. She says that she did not vomit. OBJECTIVE: VITAL SIGNS: Blood pressure is 117/84, pulse is 107, respirations are 16, O2 saturation is 100% on room air, and her temperature is 98.5. HEENT: Head is atraumatic and normocephalic. Eyes are PERRLA. Sclerae are nonicteric. Oral mucosa is moist. NECK: Supple. LUNGS: Clear. HEART: S1 and S2 normal. ABDOMEN: Soft, nontender. Bowel sounds are present. No organomegaly. EXTREMITIES: No clubbing, cyanosis, or edema. NEUROLOGICAL: She is alert and oriented x4. There are no any motor or sensory deficits. Her affect is flat. IMPRESSION: 1. Diabetic ketoacidosis, mild. I am going to increase her short-acting insulin to 10 units plus. We will go up on her insulin sliding scale to aggressive, and I will also increase her long-acting insulin to 16 units from 10. We will continue IV fluids. Her CO2 is up to 18 this morning, so there is some improvement. I encouraged her to start eating. I will check her urine again and make sure there is no any infection. The previous sample was not showing any nitrites or any leukocyte esterases, which would suggest of infection, but the patient is persistently in mild DKA, and we are looking for explanation for that. 2. Type 1 diabetes mellitus. As stated in previous notes, her hemoglobin A1c came back at 12.7, and she is not absolutely controlled on her regimen, which is 10 units of long-acting at night and 8 units before each meal, and she claimed that she was controlled at home. 3. Possible depression. The patient has very flat affect. She stays in bed all the time. Each time I come to see her, she is covered with sheets and she does not get up and interact like normal person. I will start her on some antidepressant, although she denies that she is depressed. Job ID: [id number]
[2019-06-06] MEDS: Insulin Glargine 20 UNITS in Pre-Filled Syringe 1 EACH SC SCH (20:19)
[2019-06-06] MEDS: Mag-Al 1200 mg/1200 mg/30 ML UDCUP PO PRN (20:49)
[2019-06-07] MEDS: Dextrose 5% in Water 1,000 ML IV SCH ×4 (01:09→20:37)
[2019-06-07 06:14] LABS: Anion Gap 12 mmol/L (10-20); BUN (Urea Nitrogen) 5 mg/dL (7.0-18.7); Calc. Creatinine Clearance 136 mL/min (70-130); Calcium 8.4 mg/dL (7.8-10.44); Carbon Dioxide 20 mmol/L (22-29); Chloride 102 mmol/L (98-107); Estimated GFR-MDRD Greater than 90; Glucose 274 mg/dL (70-105); Sodium 131 mmol/L (136-145)
[2019-06-07 06:20] LABS: Potassium 2.9 mmol/L (3.5-5.1)
[2019-06-07] MEDS ORDERED: Potassium Phosphate 12 MMOL in Sodium Chloride 0.9% 100 ML IVPB SCH (07:00)
[2019-06-07] MEDS: HumaLOG 300 UNITS/3 ML VIAL SC SCH ×3 (08:07→17:49)
[2019-06-07] MEDS: Enoxaparin Sodium 40 MG/0.4 ML SYRINGE SC SCH (08:07)
[2019-06-07] MEDS: Mag-Al 1200 mg/1200 mg/30 ML UDCUP PO PRN (10:24)
[2019-06-07] MEDS: Potassium Chloride 20 MEQ TAB PO SCH ×2 (10:25→14:32)
--- NOTE | 2019-06-07 11:08 | PRG ---
DATE OF SERVICE: 06/07/2019 SUBJECTIVE: The patient is seen and examined at the bedside. She did some walking yesterday when her boyfriend came for a visit with her and she ate some food. She had several episodes of retching noticed by nurses, but when she is asked about this specifically, she denies that. OBJECTIVE: VITAL SIGNS: Blood pressure is 101/71, pulse is 110, respiratory rate is 18, O2 saturation is 100% on room air. Her temperature maximal is 99.5. HEENT: Head is atraumatic and normocephalic. Eyes are PERRLA. Sclerae are nonicteric. Oral mucosa is moist. NECK: Supple. LUNGS: Clear. HEART: S1 and S2. Tachycardic. No S3. No S4. ABDOMEN: Soft, nontender, nondistended. EXTREMITIES: No clubbing, cyanosis, or edema. NEUROLOGICAL: She follows my commands. She moves her all 4 extremities. There are no any motor or sensory deficits. LABORATORY DATA: Labs showed sodium of 131, potassium 2.9, chloride 102, CO2 of 20, BUN 5, creatinine 0.72, glucose is ranging from 149 to 297, calcium is 8.4, and beta-hydroxybutyrate is 0.96. IMPRESSION: 1. Diabetic ketoacidosis gradually getting better. Slowly, I doubled her long-acting insulin Lantus at night to 20 units from 10. We will continue her 10 units of short-acting before each meal plus sliding scale, which is moderate. This should clear her acidosis completely in the next day or so. 2. Type 1 diabetes mellitus, not controlled at home. 3. Hyponatremia secondary to diabetic ketoacidosis. PLAN: Plan is to do urinalysis on her. Her temperature is running low-grade, and I am wondering whether she has some kind of hidden urinary tract infection. We are not addressing at this point since she is so resistant to clear her acidosis, and we will do urine culture. We will ask her to get up and walk and ambulate. Job ID: [id number]
[2019-06-07 14:36] LABS: Bilirubin Negative (Negative); Blood, Urine 1+ (Negative); Clarity Clear (Clear); Glucose, Urine (Dipstick) Greater than 1000 mg/dL (Negative); Leukocyte Negative Leu/uL (Negative); Nitrite Negative (Negative); Protein, Urine (Dipstick) 50 mg/dL (Neg-Trace); RBC/HPF 0-3 HPF (0-3); Squamous Epithelial 0-3 HPF (0-3); Urobilinogen Normal mg/dL (Less than 2); WBC/HPF 0-3 HPF (0-3)
[2019-06-07 14:52] LABS: Bacteria/HPF None Seen HPF (None Seen)
[2019-06-07 14:53] LABS: Mucous/LPF 1+ LPF (<2+)
[2019-06-07 14:54] LABS: Urine Culture Reflex No No
[2019-06-07] MEDS: HumaLOG 300 UNITS/3 ML VIAL SC PRN (17:49)
[2019-06-07] MEDS: Insulin Glargine 20 UNITS in Pre-Filled Syringe 1 EACH SC SCH (20:36)
[2019-06-08] MEDS: Dextrose 5% in Water 1,000 ML IV SCH ×2 (06:06→11:38)
[2019-06-08 06:08] LABS: Phosphorus 2.2 mg/dL (2.3-4.7)
[2019-06-08 06:11] LABS: Anion Gap 11 mmol/L (10-20); BUN (Urea Nitrogen) 5 mg/dL (7.0-18.7); Calc. Creatinine Clearance 140 mL/min (70-130); Calcium 8.5 mg/dL (7.8-10.44); Carbon Dioxide 22 mmol/L (22-29); Chloride 102 mmol/L (98-107); Estimated GFR-MDRD Greater than 90; Glucose 260 mg/dL (70-105); Magnesium 2.2 mg/dL (1.6-2.6); Sodium 132 mmol/L (136-145)
[2019-06-08 06:14] LABS: Potassium 2.6 mmol/L (3.5-5.1)
[2019-06-08] MEDS ORDERED: Potassium Phosphate 15 MMOL in Sodium Chloride 0.9% 250 ML 250 ML IVPB SCH (07:15)
[2019-06-08] MEDS: Enoxaparin Sodium 40 MG/0.4 ML SYRINGE SC SCH (07:53)
[2019-06-08] MEDS: HumaLOG 300 UNITS/3 ML VIAL SC SCH ×3 (07:54→16:59)
[2019-06-08] MEDS ORDERED: Potassium Chloride 20 MEQ TAB PO SCH ×2 (08:00→23:30)
[2019-06-08] MEDS: Potassium Chloride 20 MEQ TAB PO SCH ×2 (09:51→17:00)
[2019-06-08] MEDS: Mag-Al 1200 mg/1200 mg/30 ML UDCUP PO PRN ×3 (09:55→20:26)
[2019-06-08 10:24] VITALS: BP 106/76
--- NOTE | 2019-06-08 14:24 | PRG ---
DATE OF SERVICE: 06/08/2019 SUBJECTIVE: The patient is seen and examined at bedside. She does not have much complaints to offer. She started eating. No abdominal pain. OBJECTIVE: VITAL SIGNS: Blood pressure is 113/87, pulse is 110, respiratory rate is 19, O2 saturation is 100% on room air. HEENT: Her head is atraumatic and normocephalic. Eyes are PERRLA. Sclerae nonicteric. Oral mucosa is moist. NECK: Supple. LUNGS: Clear. HEART: S1 and S2. Tachycardia. No S3. No S4. ABDOMEN: Soft, nontender, and nondistended. EXTREMITIES: No clubbing, cyanosis, or edema. NEUROLOGIC: Intact. LABORATORY DATA: Labs show sodium of 132, potassium 2.6, chloride 102, CO2 of 22, BUN 5, and creatinine 0.7. Glycemia is ranging from 162 to 213. Phosphorus is 2.2, magnesium is 2.2. IMPRESSION: 1. Diabetic ketoacidosis, improving slowly. 2. Type 1 diabetes mellitus, not controlled at home. 3. Hyponatremia secondary to diabetic ketoacidosis. 4. Hypokalemia. She will require several doses of potassium orally and IV. Also, we will try to replace her phosphorus orally. She should be able to go home in the next day or two. I will stop her IV fluids at this point. Continue her 20 units of Lantus at h.s. and 10 units of short-acting insulin plus sliding scale before each meal, and I encouraged her to get up and ambulate. Job ID: [id number]
[2019-06-08] MEDS: Insulin Glargine 20 UNITS in Pre-Filled Syringe 1 EACH SC SCH (21:15)
[2019-06-08 22:22] LABS: Potassium 2.7 mmol/L (3.5-5.1)
[2019-06-09] MEDS ORDERED: Potassium Chloride 20 MEQ TAB PO SCH ×3 (01:30→10:00)
[2019-06-09 04:46] LABS: Anion Gap 11 mmol/L (10-20); BUN (Urea Nitrogen) 8 mg/dL (7.0-18.7); Calc. Creatinine Clearance 138 mL/min (70-130); Calcium 9.1 mg/dL (7.8-10.44); Carbon Dioxide 23 mmol/L (22-29); Chloride 106 mmol/L (98-107); Estimated GFR-MDRD Greater than 90; Glucose 181 mg/dL (70-105); Potassium 3.5 mmol/L (3.5-5.1); Sodium 136 mmol/L (136-145)
[2019-06-09 07:31] VITALS: BMI 24.1
[2019-06-09] MEDS: HumaLOG 300 UNITS/3 ML VIAL SC SCH ×2 (08:41→11:10)
[2019-06-09] MEDS: Enoxaparin Sodium 40 MG/0.4 ML SYRINGE SC SCH (08:42)
[2019-06-09 10:26] VITALS: TEMP 97.3
[2019-06-09] MEDS: Mag-Al 1200 mg/1200 mg/30 ML UDCUP PO PRN (11:13)
--- NOTE | 2019-06-09 15:15 | DIS ---
DATE OF ADMISSION: 06/02/2019 DATE OF DISCHARGE: 06/09/2019 FINAL DIAGNOSES: 1. Diabetic ketoacidosis with nausea and vomiting. 2. Metabolic acidosis secondary to diabetic ketoacidosis with nausea and vomiting, resolved. 3. Type 1 diabetes mellitus, not controlled at home. 4. Hyponatremia secondary to diabetic ketoacidosis with nausea and vomiting. 5. Hypokalemia, resolved, status post supplementation. HOSPITAL COURSE: The patient is a 29-year-old, type 1 diabetic, who presented with nausea, vomiting, and some abdominal cramping of 1-day duration. She was evaluated in the emergency room and her white count was 12.5, hemoglobin 13.4, and hematocrit 40.8. Her creatinine was 1.0, BUN of 20. LFTs were within normal limits. Lipase was 29. Urinalysis showed 500 of glucose, 100 of protein, 15 of ketones, large amount of blood, small amount of bilirubin, rbc's were greater than 50, leukocyte esterase was negative, nitrites was negative, 1+ bacteria, and hyaline casts 4 to 6. Urine test was negative. The patient was treated with IV fluids, antiemetics, and insulin. She became acidotic. Her CO2 went down to 14. We increased the dose on her insulin. She required 10 units of short-acting insulin plus moderate sliding scale on the top of increased dose of Lantus, which was increased from 10, which is her normal home dose to 20. She was not able to tolerate food for several days. Finally, her acidosis is cleared. Her hemoglobin A1c came back at 12, so it means that her regimen was not adequate and she is doing well today. She started eating and tolerating food without any nausea or vomiting. Her acidosis is cleared. Her glycemia is doing significantly better. It was in 100 yesterday. Her potassium was replaced with multiple doses. Her vitals today blood pressure is 110/71, pulse is 109, temperature is 97.4, respiratory rate is 17, and O2 saturation is 100% on room air. She is seen and examined before she is discharged. She has some tachycardia, but according to her, she has this on and off. Her recommendation is disposition is home. ACTIVITY: As tolerated. DIET: 2000-calories ADA. MEDICATIONS: At the time of discharge; 1. Insulin Lantus 20 units once a day. 2. Short-acting NovoLog of 10 units 3 times a day before each meal. 3. Potassium 20 mEq once a day. FOLLOWUP: She is going to follow up with her primary care physician in 1 week and she will follow up with her systems accountant. TIME SPENT: The time spent on this discharge is less than 30 minutes. Job ID: [id number]
== END 2019-06-09 11:33 | disposition home or self-care (01) | DRG 638 ==
LOC: ERS 20:43 → ERHOLD 06-02 00:21 → INTOOBSV 06-02 00:21 → OBSVTOIN 06-02 00:21 → 2SW 06-02 14:26 → T4-A 06-05 00:40 → IMCU/EMU 06-08 11:27
PROVIDERS: ADMIT Internal Medicine; ATTEND Internal Medicine
DX: E10.10 Type 1 diabetes mellitus with ketoacidosis without coma (principal); E87.1 Hypo-osmolality and hyponatremia; E86.0 Dehydration; K76.0 Fatty (change of) liver, not elsewhere classified; E87.6 Hypokalemia; R00.0 Tachycardia, unspecified; F32.9 Major depressive disorder, single episode, unspecified; Z79.4 Long term (current) use of insulin
CPT/HCPCS: 36415; 36416; 74177; 80048; 80053; 81001; 81003; 81015; 81025; 82010; 83036; 83690; 83735; 84100; 85025; 94760; 96361; 96365; 96366; 96375; J1650; J1815; J2405; J2550; J2765; J3490; J7050; Q9966

== ENCOUNTER 2020-12-02 16:48 | Emergency (ER) | payer OTHER ==
[2020-12-03 02:28] LABS: SARS-CoV-2 MS2 Positive; SARS-CoV-2 N Gene Negative; SARS-CoV-2 S Gene Negative; SARS-CoV-2 by NAA Not Detected (NotDetected); SARS-CoV-2 orf1ab Negative
== END 2020-12-02 20:00 | disposition home or self-care (01) ==
LOC: ERS 16:48
DX: Z20.822 Contact with and (suspected) exposure to COVID-19 (principal); E10.9 Type 1 diabetes mellitus without complications
CPT/HCPCS: 87635; 99283; U0003

== ENCOUNTER 2025-07-27 00:26 | Emergency (ER) | payer OTHER ==
[2025-07-27 00:56] LABS: Actual Bicarbonate (HCO3v) 23.5 mEq/L (22-28); Base Excess -2.1 mEq/L (-2.0 to +3.0); Calcium, Ionized (venous) 1.10 mmol/L (1.16-1.32); Chloride (VBG) 104 mmol/L (98-106); Hematocrit-VBG 33 % (36.0-47.0); Hemoglobin (Hb) 11.2 g/dL (11.7-15.5); Potassium (VBG) 4.01 mmol/L (3.70-5.30); Sodium 135 mmol/L (133-146)
[2025-07-27 00:59] LABS: #Basophils 0.04 10x3/uL (0.0-0.2); #Eosinophils 0.06 10x3/uL (0.0-0.7); #Monocytes 0.38 10x3/uL (0.11-0.59); #Neutrophils 4.86 10x3/uL (1.40-6.50); %Basophils 0.5 % (0.0-1.0); %Eosinophils 0.7 % (0.0-10.0); %Lymphocytes 39.3 % (21.0-51.0); %Monocytes 4.3 % (0.0-10.0); %Neutrophils 54.9 % (42.0-75.0); Hematocrit 29.6 % (36.0-47.0); Hemoglobin 10.0 g/dL (12.0-16.0); Mean Corpuscular Hemoglobin 28.1 pg (27.0-31.0); Mean Corpuscular Volume 83.1 fL (78.0-98.0); Platelet Count 352 10x3/uL (130-400); Red Blood Cell (RBC) Count 3.56 mill/uL (4.20-5.40); White Blood Cell (WBC) Count 8.84 10x3/uL (4.8-10.8)
[2025-07-27] MEDS ORDERED: Metoclopramide HCl 10 MG (2 mL) VIAL ONE (01:05)
[2025-07-27] MEDS ORDERED: diphenhydrAMINE 50 MG/ML VIAL ONE (01:05)
[2025-07-27 01:15] LABS: ALT (SGPT) 10 U/L (Less than 34); AST (SGOT) 29 U/L (11-34); Albumin 2.5 g/dL (3.1-4.5); Alkaline Phosphatase 43 U/L (40-110); Anion Gap 16 mmol/L (10-20); BUN (Urea Nitrogen) 4 mg/dL (7.0-18.7); Bilirubin, Total 0.3 mg/dL (0.3-1.2); Calc. Creatinine Clearance 0 mL/min (70-130); Calcium 8.6 mg/dL (7.8-10.44); Carbon Dioxide 18 mmol/L (22-29); Chloride 106 mmol/L (98-107); Globulin 4.5 g/dL (2.4-3.5); Glucose 116 mg/dL (70-105); Potassium 4.2 mmol/L (3.5-5.1); Sodium 136 mmol/L (136-145)
[2025-07-27 05:14] LABS: Bacteria/HPF None Seen HPF (None Seen); CAUTI Indications for Culture Pregnancy; Glucose, Urine (Dipstick) 30 mg/dL (Negative); Leukocyte Negative Leu/uL (Negative); Protein, Urine (Dipstick) 200 mg/dL (Neg-Trace); RBC/HPF 0-3 HPF (0-3); Specific Gravity, Urine 1.008 (1.002-1.036); WBC/HPF 0-3 HPF (0-3)
[2025-07-27 05:17] LABS: Urine Culture Reflex Yes Yes
== END 2025-07-27 07:05 | disposition home or self-care (01) ==
LOC: ERS 00:26
DX: O99.891 Other specified diseases and conditions complicating pregnancy (principal); E86.0 Dehydration; O12.12 Gestational proteinuria, second trimester; O24.012 Pre-existing type 1 diabetes mellitus, in pregnancy, second trimester; Z3A.16 16 weeks gestation of pregnancy
CPT/HCPCS: 36416; 76815; 80053; 81001; 82570; 82805; 83690; 84156; 84484; 84702; 85025; 86850; 86900; 86901; 87086; 93005; 96365; 96366; 96375; J1200; J2765